=== PATIENT | female | born 1960 | race African-American/Black ===

== ENCOUNTER 2023-03-28 11:28 | Outpatient (CLI) | payer MEDICARE, SELFPAY ==
--- NOTE | 2023-03-28 11:45 | ECG_ITS ---
APPROVED REPORT Exam: Resting ECG HR:89 bpm ECG Measurements Heart Rate 89 AXES PA 137 P 76 QRSd 89 QRS 33 QT 367 T 41 QTc 413 Conclusion SINUS RHYTHM LOW QRS VOLTAGE IN PRECORDIAL LEADS with late R wave progression BORDERLINE ECG UNCONFIRMED REPORT Electronically signed by : Adilson Beckwith MD 03/29/2023 08:18:49
--- NOTE | 2023-03-28 11:56 | XR_ITS ---
FINAL REPORT CLINICAL HISTORY: Pre-Operative Testing, BILAT FEET COMPARISON: None FINDINGS: LEFT FOOT: Three views of the left foot were obtained. There is no acute fracture or dislocation. There is moderate to severe degenerative change of the midfoot. Postoperative changes are present involving the first through fourth digits with partial amputation of the third digit. There is a mild varus angulation of the forefoot. A plantar calcaneal spur is present. There is no soft tissue abnormality. IMPRESSION: No acute bony abnormality. Moderate to severe degenerative change as described. Reviewed, Interpreted and Dictated by Chilo Selby III, MD Transcribed by Darcy Gracia Authenticated and [facility]
--- NOTE | 2023-03-28 11:56 | XR_ITS ---
FINAL REPORT CLINICAL HISTORY: Pre-Operative Testing, BILAT FEET, HPOTENSION, DIABETIC COMPARISON: None FINDINGS: Two views of the chest were obtained. The heart size and pulmonary vascularity are within normal limits. The mediastinum is normal. No acute pulmonary abnormality is identified. There is no pneumothorax. The bony thorax is intact. IMPRESSION: No active cardiopulmonary disease. Reviewed, Interpreted and Dictated by Chilo Selby III, MD Transcribed by Darcy Gracia Authenticated and [facility]
--- NOTE | 2023-03-28 11:56 | XR_ITS ---
FINAL REPORT CLINICAL HISTORY: Pre-operative Testing, BILAT FEET COMPARISON: None FINDINGS: RIGHT FOOT: Three views of the right foot were obtained. There is no acute fracture or dislocation. Postoperative changes present in the distal tibia and fibula. There is severe degenerative change in the midfoot with fusion of numerous tarsal bones. There has been amputation of the first and second digits. There is no soft tissue abnormality. IMPRESSION: Postoperative changes are present with severe degenerative change as described. Reviewed, Interpreted and Dictated by Chilo Selby III, MD Transcribed by Darcy Gracia Authenticated and [facility]
[2023-03-28 12:06] LABS: Basophils # 0.1 K/mm3 (0-0.2); Basophils % 1.3 % (0.1-2.0); Eosinophils # 0.4 K/mm3 (0.0-0.4); Eosinophils % 6.7 % (0.1-12.0); Lymphocytes # 0.9 K/mm3 (0.7-4.5); Lymphocytes % 15.5 % (10-50); Mean Corpuscular HGB Conc 31.4 g/dL (31.8-35.4); Mean Corpuscular Volume 82.9 fl (81-99); Mean Platelet Volume 7.8 fl (7.4-10.4); Monocytes # 0.3 K/mm3 (0.1-1.0); Monocytes % 5.7 % (1.7-9.3); Neutrophils % 70.8 % (37.0-80.0); Platelet Count 454 K/mm3 (142-424); Red Blood Count 4.22 M/mm3 (4.20-5.40); White Blood Count 5.6 K/mm3 (4.8-10.8)
[2023-03-28 12:13] LABS: Red Cell Distribution Width 25.9 % (11.5-17.5)
[2023-03-28 12:43] LABS: Erythrocyte Sedimentation Rate 48 mm/hr (0-30)
[2023-03-28 12:51] LABS: Alanine Aminotransferase 30 U/L (12-78); Albumin Level 3.6 g/dl (3.5-5.0); Albumin/Globulin Ratio 1.2 (1.1-1.8); Alkaline Phosphatase 160 U/L (38-126); Anion Gap 10.5 mEq/L (5-15); Aspartate Amino Transferase 55 U/L (14-36); Bilirubin,Total 0.6 mg/dl (0.2-1.3); Blood Urea Nitrogen 21 mg/dl (7-17); Carbon Dioxide 29 mmol/L (22.0-30.0); Chloride 105 mmol/L (98-107); Estimated Glomerular Filt Rate 56 ml/min (>60); GFR (African American) 68 ML/MIN (>60); Globulin 3.1 g/dL (1.3-3.2); Glucose 119 mg/dl (74-100); Potassium 4.5 mmoL/L (3.5-5.1); Sodium 140 mmol/L (136-145); Total Protein,Serum 6.7 g/dl (6.3-8.2)
[2023-03-28 12:57] LABS: C-Reactive Protein 8.3 mg/L (0-4)
== END 2023-03-28 23:59 ==
PROVIDERS: PCP Ophthalmology; Visit Provider Podiatrist
DX: Z01.818 Encounter for other preprocedural examination (principal); M79.671 Pain in right foot; M79.672 Pain in left foot; R60.9 Edema, unspecified
CPT/HCPCS: 36415; 71046; 73630; 80053; 85025; 85651; 86140; 93005

== ENCOUNTER 2023-04-04 06:13 | Day surgery (SDC) | payer MEDICARE, MEDICAID, SELFPAY ==
[2023-04-02 10:15] VITALS: BMI 45.8
[2023-04-04] MEDS: LACTATED RINGERS 1000ML 1,000 ML 25 ML IV (06:31)
[2023-04-04 06:40] VITALS: BP 144/76; PULSE 88; RESP 18; TEMP 36.1; O2SAT 99
[2023-04-04 06:51] LABS: POC Glucose,Bedside 122 (70-110)
--- NOTE | 2023-04-04 07:09 | EXP.ANES.CKL ---
[facility] Disclaimer: The information contained in this section may have been updated after the patient was seen, as this information can be updated by other users. 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, right, traumatic Asthma Chronic obstructive pulmonary disease Congestive heart failure Diabetes mellitus Joint disease Partial traumatic amputation of lesser toe Tonsillectomy planned Surgical History H/O: hysterectomy History of ankle surgery History of cholecystectomy History of weight loss surgery Tubal ligation status Family History Grandfather Cancer Grandmother Cancer Mother Cancer Social History Smoking Status: Former smoker alcohol intake: never substance use type: denies use current occupational status: disabled Travel in the last 8 weeks: None [facility] Anesthesia Checklist Patient Identification Patient Identification: Arm Band Structural Data Admitted From: Home Planned Operative Procedure/s: Right 3rd Toe Amputation Consent for Planned Operative Procedure(s) Verified: Yes Verified Documents: Surgical Consent and History and Physical NPO Status Verified Time NPO: 00:00 Additional verifications Anesthesia Reactions: No Hx Blood Transfusions: Yes Blood Transfusion Reaction: No Airway Assessment Mallampati Score:: Class II C-Spine Mobility Assessed: Yes TMJ Mobility Assessed: Yes Dentition: Edentulous Neurological Assessment Level of Consciousness: Awake, Alert and Appropriate Anesthesia Plan Anesthesia Risk discussed: Yes Anesthesia Plan: Verified ASA Class: III Anesthesia Type: MAC
[2023-04-04] MEDS: LIDOCAINE 1% 10ML MDV 10 ML (07:45)
[2023-04-04] MEDS: BUPIVACAINE 0.5% 10ML VIAL 50 MG (07:45)
[2023-04-04 08:15] VITALS: BP 127/66; PULSE 92; RESP 17; TEMP 36.1; O2SAT 98
--- NOTE | 2023-04-04 08:23 | P.OP_ITS ---
Date of procedure: 04/04/23 Pre-op Diagnosis:: Chronic deformed toe; hammertoe, dislocated third toe right foot Post-op Diagnosis:: Same Procedure performed:: Right Third Toe Amputation at MPJ level (not including metatarsal) Surgeon:: Diego Regalado DPM ADULT PSYCHIATRIST:: Other Anesthesia: MAC and local Estimated blood loss (mL): 1 Operative findings:: Expected. Operative note:: Patient was seen in preop holding area. Reviewed the patient consent as well as give the patient opportunity to ask any questions and they were answered fully. She is fully aware of the procedure as she has had amputations before and is aware of how to manage the postsurgery by keeping it clean dry and intact and monitor it as needed. She already has a follow-up appointment in my office in [place] in 6 days. The surgical foot was signed and the patient was in full agreement as to the third toe right foot being amputated for the procedure. Patient was wheeled to the operative room and moved to the operating room table in supine position. Small amount of propofol was administered by anesthesia and then I block to the right third toe with a digital block of one-to-one mixture of 1% Xylocaine plain half percent Marcaine plain. The foot is then scrubbed prepped and draped in the usual aseptic manner. Esmarch bandage was used to exsanguinate the patient's right foot and then secured the Esmarch bandage above the malleoli. A teardrop incision was made to circumscribe the right third toe at the metatarsal phalangeal joint. Incision was deepened to subcutaneous tissues. Bovie used to cauterize vessels as needed. Disarticulated the toe from the proximal phalanx of the metatarsal head with blunt and sharp dissection using scissors and scalpel. The third toe was amputated. Inspected the tissues there was no signs of infection and I was able to then rinse the wound with copious amounts of saline. Closed the wound in layers with 3-0 Vicryl and 3-0 nylon. Then I covered the wound with Xeroform gauze 4 x 4's and ABD pad and Kerlix. Additional note: The patient had a very superficial wound on the anterior medial navicular region of the right foot as well. It is full-thickness dermis with no cellulitis no signs of infection and measuring approximate 1.2 cm in diameter by 1 mm deep. I also covered this with Xeroform gauze and ABD and then incorporated it with the full surgical dressings to secure around the ankle with Kerlix and then a loosefitting elastic bandage. The patient has a walking boot from prior surgeries as well as a [place] walker boot for bilateral feet. She is to limit her activity is much as possible and follow-up in my office in 6 days. She also has my phone number and if there are any concerns may call me or report to nearest ER. Tourniquet time (min): 0 Condition: stable Disposition: same day Complications:: negative
--- NOTE | 2023-04-04 08:23 | EXP.ANES.I ---
[facility] Anesthesia Record Part I Anesthesia Record I Intake, IV Amount: 500 Hydration: Adequate Estimated blood loss (mL): 5 Urine output (mL): 0 Blood Products used (#): none Blood Pressure: 127/66 SaO2: 98 Pulse Rate: 92 Airway Patency: Patent Respiratory Rate: 16 Temperature: 97.0 F Patient is:: Awake and Stable Stable to PACU at:: 08:20
[2023-04-04 08:24] VITALS: BP 127/66; PULSE 92; RESP 16; TEMP 36.1; O2SAT 98
[2023-04-04 08:25] VITALS: BP 136/64; PULSE 90; RESP 16; O2SAT 97
[2023-04-04 08:43] VITALS: BP 134/72; PULSE 86; RESP 17; O2SAT 98
== END 2023-04-04 08:46 | disposition home or self-care (01) ==
PROVIDERS: PCP Social Worker; Visit Provider Podiatrist
PROC: (CPT 28820; principal; 2023-04-04 07:30)
DX: M20.41 Other hammer toe(s) (acquired), right foot (principal); E11.41 Type 2 diabetes mellitus with diabetic mononeuropathy; E11.610 Type 2 diabetes mellitus with diabetic neuropathic arthropathy; J44.9 Chronic obstructive pulmonary disease, unspecified; Z79.899 Other long term (current) drug therapy; Z79.4 Long term (current) use of insulin
CPT/HCPCS: 28820; 82962